=== PATIENT | female | born 1995 | race Asian ===

== ENCOUNTER 2022-02-01 01:33 | Emergency (ER) | payer SELFPAY ==
[~2022-02-01] VITALS: Ht 160 cm; Wt 54.0 kg
[2022-02-01 01:43] VITALS: BP 109/66
--- NOTE | 2022-02-01 03:01 | NUR ---
Dr. Antunez at triage to exam patient.
[2022-02-01] MEDS ORDERED: DEXAMETHASONE 4 MG/ML VIAL PO ONE (03:15)
[2022-02-01] MEDS ORDERED: ACETAMINOPHEN 325 MG TAB PO ONE (03:15)
[2022-02-01] MEDS ORDERED: ONDANSETRON 4 MG ODT PO ONE (03:25)
--- NOTE | 2022-02-01 03:32 | NUR ---
medicated patient per ermd orders.
[2022-02-01] MEDS ORDERED: IBUP-1842 PO (03:36)
[2022-02-01] MEDS ORDERED: ONDA-188 SL (03:36)
[2022-02-01] MEDS ORDERED: BENZ-300 PO (03:36)
--- NOTE | 2022-02-01 03:36 | NUR ---
swabbed patient for strep and sent to lab.
[2022-02-01 04:16] VITALS: BP 109/66
--- NOTE | 2022-02-01 04:16 | NUR ---
Patient discharged with v/s stable. Written and verbal after care instructions given and explained. Patient alert, oriented and verbalized understanding of instructions. Ambulatory with steady gait. All questions addressed prior to discharge. ID band removed. Patient advised to follow up with PMD. Rx of Zofran, Benzocaine and Ibuprofen. given. Patient educated on indication of medication including possible reaction and side effects. Opportunity to ask questions provided and answered.
== END 2022-02-01 04:16 | disposition home or self-care (01) ==
LOC: MED 01:33
DX: J02.8 Acute pharyngitis due to other specified organisms (principal); B97.89 Other viral agents as the cause of diseases classified elsewhere; R11.0 Nausea; Z79.899 Other long term (current) drug therapy; Z79.1 Long term (current) use of non-steroidal anti-inflammatories (NSAID)
CPT/HCPCS: 87081; 99284; J1100; Q0162